=== PATIENT | female | born 1955 | race Caucasian/White ===

== ENCOUNTER 2018-03-31 00:40 | Outpatient (CLI) | payer BC, SELFPAY ==
--- NOTE | 2018-03-31 09:47 | DI.RAD_ITS ---
SYMPTOMS/DIAGNOSIS: PAIN MALVIN SHOULDERS, M19.012, PRIMARY OSTEOARTHRITIS RIGHT SHOULDER INJECTION: Fluoroscopy Time: 3 sec Fluoroscopy was utilized by Dr. Alvarado during the performance of a right shoulder injection. Please refer to the procedure report for complete details. LEFT SHOULDER INJECTION: Fluoroscopy Time: 3 sec Fluoroscopy was utilized by Dr. Alvarado during the performance of a left shoulder injection. Please refer to the procedure report for complete details.
[2018-03-31] MEDS: Omnipaque 300 MG/ML 10 ML BTL IJ (10:45)
[2018-03-31] MEDS: Bupivacaine 0.5% Pres-Free 10 ML VIAL 5 ML IJ ×2 (10:45→10:47)
[2018-03-31] MEDS: methylPREDNISolone ACETATE 80 MG/ML VIAL IM ×2 (10:46→10:48)
--- NOTE | 2018-03-31 12:13 | W.PROCNOTE ---
Date of service: 03/31/18 Time of Service: 12:13 Procedure Note Date of procedure: 03/31/18 Procedure: Bilateral shoulder Injection Surgeon/Proceduralist/Physician: Salo Alvarado Procedure Diagnosis: Bilateral glenohumeral arthritis Procedure Indications: Tania has had persistent pain of both shoulders. Noninvasive measures have been tried. She has known arthritis. She has had previous injection with excellent relief for about 6-8 months. I had discussed the risks of the procedure and the patient elected to proceed. Procedure Description: Tania was greeted in the flouroscopy room. The correct side was identified and the consent was reviewed with the patient and signed. The patient was then placed in the supine position on the fluoroscopy table. The LEFT shoulder was then prepped with Chloraprep. The anterior injection starting point was identiifed by bony landmarks and fluoroscopy. The skin and soft tissue in the tract of the injection was anesthetized with 1% Lidocaine. A spinal needle was then inserted deep into the shoulder joint at the level of the recess between the glenoid and superior humeral head. A small amount of Omnipaque solution was injected to confirm intraarticular placement. Once confirmed, the shoulder was injected with 4cc of 0.5% Bupivicaine and 80mg of Depo-Medrol. A bandaid was placed on the injection site. Back there was kept sterile and the patient was repositioned. The right side was identified as the correct side. The right shoulder was then prepped with ChloraPrep. The anterior injection starting point was identiifed by bony landmarks and fluoroscopy. The skin and soft tissue in the tract of the injection was anesthetized with 1% Lidocaine. A spinal needle was then inserted deep into the shoulder joint at the level of the recess between the glenoid and superior humeral head. A small amount of Omnipaque solution was injected to confirm intraarticular placement. Once confirmed, the shoulder was injected with 4cc of 0.5% Bupivicaine and 80mg of Depo-Medrol. A bandaid was placed on the injection site. The patient tolerated the procedure well and noted improvement in pre-injection pain.
== END 2018-03-31 01:00 ==
PROVIDERS: Visit Provider Student in an Organized Health Care Education/Training Program
DX: M25.511 Pain in right shoulder (principal); M25.512 Pain in left shoulder; M19.011 Primary osteoarthritis, right shoulder; M19.012 Primary osteoarthritis, left shoulder
CPT/HCPCS: 20610; 77002; J1040

== ENCOUNTER 2019-05-03 01:46 | Outpatient (CLI) | payer MEDICARE, BC, SELFPAY ==
--- NOTE | 2019-05-03 09:51 | DI.RAD_ITS ---
EXAM: XR CHEST 2V PA LATERAL INDICATION: cough R05, DYSPNEA NR06.00, R07.89 CHEST PAIN. COMPARISON: CHEST 2 VIEWS PA,LAT from 12/31/2011 RIGHT SHOULDER COMPLETE from 02/26/2016 LEFT SHOULDER COMPLETE from 02/26/2016 TECHNIQUE: 2D digital imaging was performed. FINDINGS: The heart size is normal. There are old left rib fractures. The lungs are mildly hyperinflated but appear clear. No infiltrate or effusion is seen. A left shoulder prosthesis is noted. There are n o thoracic compression fractures. IMPRESSION: No acute abnormality.
== END 2019-05-03 02:06 ==
DX: R05 Cough (principal); R06.09 Other forms of dyspnea; R07.89 Other chest pain; R00.0 Tachycardia, unspecified; I10 Essential (primary) hypertension
CPT/HCPCS: 71046

== ENCOUNTER 2019-05-17 08:01 | Outpatient (CLI) | payer MEDICARE, BC, SELFPAY ==
--- NOTE | 2019-05-17 14:40 | DI.RAD_ITS ---
EXAM: XR THORACIC SPINE COMPLETE INDICATION: back pain,M54.9. COMPARISON: XR CERVICAL SPINE COMP 4-5V from 05/17/2019 TECHNIQUE: 2D digital imaging was performed. FINDINGS: There is normal alignment of the thoracic spine. The paraspinal lines appear intact. Mild degenerat syd changes are present throughout the thoracic spine. No acute fractures or subluxations are presen t. IMPRESSION: Mild degenerative changes of the thoracic spine.
--- NOTE | 2019-05-17 14:50 | DI.RAD_ITS ---
EXAM: XR CERVICAL SPINE COMP 4-5V INDICATION: neck/thoracic pain,M54.2. COMPARISON: No exams were available for comparison TECHNIQUE: 2D digital imaging was performed. FINDINGS: The odontoid is intact. The lateral masses are well aligned. There is straightening of the normal c ervical lordosis. There is 2 mm anterolisthesis of C2 on C3. There is also 2 mm anterolisthesis of C3 on C4. There is disc space narrowing at the C4-C5 through C6-C7 disc levels. Osteophytes are see n at the C3-4 through C6-C7 disc levels. There is mild neural foraminal narrowing on the left at C3- C4 and on the right at C3-4, C4-5 and C6-C7. No acute fracture or subluxation is present. Vascular calcifications are seen in the soft tissues. IMPRESSION: Moderately severe degenerative changes in the cervical spine.
== END 2019-05-17 08:21 ==
DX: M54.2 Cervicalgia (principal); M54.6 Pain in thoracic spine; M50.321 Other cervical disc degeneration at C4-C5 level; M50.323 Other cervical disc degeneration at C6-C7 level; M47.814 Spondylosis without myelopathy or radiculopathy, thoracic region
CPT/HCPCS: 72050; 72072

== ENCOUNTER 2019-05-23 01:27 | Outpatient (CLI) | payer MEDICARE, BC, SELFPAY ==
--- NOTE | 2019-05-23 07:08 | DI.US_ITS ---
APPROVED REPORT EXAM: Comprehensive 2D, Doppler, and color-flow Echocardiogram Patient Location: Out-Patient [employer] Tender Helper: Aziza Anthony [facility] ([facility]) Rhythm: Tachycardia Indications: chest pain pressure, tachycardia, dyspnea. cough. r06.00, r07.89, r05, r00.0 Conclusion Left Ventricle : The left ventricle is normal size. Left ventricular systolic function is hyperdynam ic. There is normal LV segmental wall motion. The left ventricular diastolic function is normal. LVEF is 60-65%. Right Ventricle : The right ventricle is normal size. The right ventricular systolic function is norm al. Atria : The left atrium size is normal. The right atrium size is normal. Aortic Valve : The aortic valve appears normal in structure. There is no aortic valvular stenosis. N o aortic regurgitation is present. Mitral Valve : Mitral valve leaflets are mildly thickened. Mild mitral regurgitation. No evidence of mitral valve stenosis. Tricuspid Valve : Tricuspid valve leaflets are thickened but open well. Trace tricuspid regurgitation . Trace to mild tricuspid regurgitation. Pulmonic Valve : Pulmonic valve is not well visualized. Great Vessels : IVC is normal in size and collapses >50% with inspiration. RVSP is estimated to be b etween 28-32 mmHg. There is no prior echocardiogram available for comparison. Wall motion Left Ventricle The left ventricle is normal size. Left ventricular systolic function is hyperdynamic. The posterior wall thickness is normal. The septum is normal. There is normal LV segmental wall motion. The left ve ntricular diastolic function is normal. LVEF is 60-65%. Right Ventricle The right ventricle is normal size. The right ventricular systolic function is normal. Atria The left atrium size is normal. The right atrium size is normal. Aortic Valve The aortic valve appears normal in structure. There is no aortic valvular stenosis. No aortic regurgi tation is present. Mitral Valve Mitral valve leaflets are mildly thickened. No evidence of mitral valve stenosis. Mild mitral regurgi tation. Tricuspid Valve Tricuspid valve leaflets are thickened but open well. Trace tricuspid regurgitation. Trace to mild tr icuspid regurgitation. Pulmonic Valve Pulmonic valve is not well visualized. Great Vessels The aortic root is normal in size. IVC is normal in size and collapses >50% with inspiration. RVSP is estimated to be between 28-32 mmHg. Pericardium Trivial pericardial effusion anterior. 2D Dimensions IVSd 0.66 cm F: 0.6-1.0 LV EDV A2C 44.50 mL PWd 0.62 cm F: 0.6 - 1.0 LV EDV A4C 37.90 mL LVDd 3.90 cm F: 3.9 - 5.3 LA Volume Index A2C 17.43 mL/m2 LVDs 2.05 cm F: 2.2 - 3.5 LA Volume Index A4C 18.91 mL/m2 RA Area A4C 8.18 cm2 LA Volume Index Biplane 19.99 mL/m2 LVOT 1.79 cm (M/F) 1.5-2.5 LA Area A4C 11.54 cm2 LVEF (Teich) 79.46 % LA Area A2C 12.20 cm2 LVEF (Ace's) 66.38 % F: 54 - 74 EF AP4 68.87 % LV Volume 36.41 mL F: 46 - 106 EF AP2 63.60 % LV Volume Index 24.60 mL/m2 F: 29 - 61 EF BP 66.38 % FS 47.45 % LV Diastology E Decel Time 157.00 (160-240 msec) E/A Ratio 0.70 MED E' 0.08 (>0.07 m/s) LV E/e MED 8.13 (<14) LAT E' 0.11 (>0.1 m/s) LV E/e LAT 5.55 (<14) Aortic Valve LVOT Area 2.51 cm2 LVOT Peak Oumar. 0.99 m/s LVOT Mean Oumar. 0.70 m/s LVOT Peak Gr. 3.92 mmHg GRACIELA Vmax Index 1.17 cm2/m2 LVOT Mean Gr. 2.30 mmHg LVOT VTI 0.17 m GRACIELA Mean Oumar. Index 1.13 cm2/m2 AoV Peak Oumar. 1.44 (0.5-1.3 m/s) AoV Mean Oumar. 1.05 m/s AO Peak GR. 8.29 mmHg AO Mean GR. 4.83 (<5 mmHg) AO VTI 0.26 (0.18-0.25 m) GRACIELA (VTI) 1.62 (2.5-4.5 cm2) GRACIELA (VTI) Index 1.09 cm/m2 Mitral Valve MV E Max Oumar. 0.64 (0.4-1.3 m/s) MV A Velocity 0.93 (0.4-1.3 m/s) E/A Ratio 0.68 MV Decel. Time 157.28 (160-240 msec) MV PHT 45.61 msec MVA PHT 4.82 cm2 Tricuspid Valve TR P. Velocity 2.64 m/s TV Regurg Vmax 2.64 m/s RVSP 27.88 mmHg TR P. Gradient 27.88 mmHg
== END 2019-05-23 01:47 ==
DX: R07.89 Other chest pain (principal); R00.0 Tachycardia, unspecified; R06.00 Dyspnea, unspecified; R05 Cough
CPT/HCPCS: 93306

== ENCOUNTER 2019-06-23 08:37 | Outpatient (CLI) | payer MEDICARE, BC, SELFPAY | END 2019-06-23 08:57 | PROVIDERS: Visit Provider Internal Medicine Cardiovascular Disease | DX: M54.9 Dorsalgia, unspecified (principal); I10 Essential (primary) hypertension; E78.5 Hyperlipidemia, unspecified; F17.210 Nicotine dependence, cigarettes, uncomplicated | CPT/HCPCS: 99204; 99215; 93005; 93010 ==

== ENCOUNTER 2020-11-14 09:55 | Emergency (ER) | payer MEDICARE, BC, SELFPAY ==
[2020-11-14 10:02] VITALS: BP 160/93; PULSE 79; RESP 15; TEMP 36.8; O2SAT 99
--- NOTE | 2020-11-14 10:09 | ED.GENADUL_ITS ---
Discharge Plan Disposition Patient Disposition: HOME Condition: Stable Discharge Details Clinical Impression: Diplopia, Headache Primary Care Provider: Mishel Desai ED Provider: Dali Caldwell Home Meds and New Rx's Prescriptions: No Action multivitamin 1 EACH tablet 1 ea PO DAILY RF: 0 ibuprofen 200 MG tablet 400 - 600 mg PO PRN RF: 0 epinephrine [EpiPen 2-Jese] 0.3 MG/0.3 ML auto-injector 0.3 mg IM ONCE Qty: 1 RF: 1 Discharge Instructions Instructions: Diplopia (ED), General Headache (ED) Additional Instructions: Follow-up with your analytics architect or [facility] in 3 to 5 days. This may be an eye problem or an atypical migraine type headache. If this continues or recurs he may also follow-up with neurology Dr. Rodarte Follow up with primary care provider in 3-5 days. Return to ED sooner if any worsening headache, worsening visual disturbances, fever, vomiting, worsening neck pain, or concerns. Increase oral fluids. You may take Tylenol or ibuprofen every 4-6 hours as needed for pain. Referrals: Mishel Desai NP [Primary Care Provider] - Irasema Rodarte MD [ [facility] STAFF PHYSICIAN] - Medical Decision Making CBC, CMP, PT CT head without and with ordered. Labs are largely unremarkable, glucose 107, platelet count 443 Differential diagnosis includes but not limited to CVA, atypical migraine,tumor, giant cell arteritis CT head without and with: FINDINGS: There are no skull fractures nor fluid in the visualized paranasal sinuses. However, there is a post inflammatory retention cyst measuring 10 x 10 millimeters in the anterior floor of the right maxillary sinus, not associated with a fluid level. There is also unilateral periosteal thickening of the lateral wall of the left maxillary sinus without significant mucosal thickening. The sphenoid and frontal sinuses are clear as are the model air cells. Mastoid air cells are clear. There is no evidence of intracranial hemorrhage, mass effect, or shift of midline structures. There are no extra-axial fluid collections. The ventricles are not enlarged or shifted and there is no blood within the ventricular system nor within the basal cisterns. There are no ring enhancing lesions in the brain and there is no abnormal meningeal enhancement, focal or diffuse. No obvious aneurysms. IMPRESSION: No significant intracranial findings. No significant enhancing intracranial findings.. No aneurysms Incidentally noted is periosteal thickening of the lateral wall of the left maxillary sinus and a small retention cyst in the floor of the opposite-right maxillary sinus. 1104: Patient reevaluation, blood pressure has improved somewhat, patient states that her headache has slowly been decreasing and is now stating 4 out of 10. Offered nausea and pain medications with patient declined at this time. Will consult with neurology for further recommendations. 1113: Spoke with Irasema Scanlon regarding patient, confirmed with patient that she does still have Diplopia present when closing either eye. Due to continued diplopia with closing eyes, Dr. Scanlon does not have any further reccommendations for further imaging at this time. This could be more of a migraine or eye problem. Offered patient nausea medication and pain medications which she declined at this time. She states that her headache is now gone. Discussed home care with patient and strict return instructions, verbalized understanding. This text was generated using [employer] dictation system, please disregard any oddities of phrase or misspellings. Patient remained hemodynamically stable alert and oriented x4 throughout stay. She reports that her completely gone prior to discharge. HPI General Mode of arrival: ambulatory . Date/Time Provider Initiated Documentation: 11/14/20 10:05 . Limitations to Documentation: no limitations . Information obtained by: patient . HPI Narrative: 65-year-old female presents to the ER chief complaint of posterior headache and double vision which she noticed began at 430 this morning. She states that she was working on her sewing machine and noticed what she describes as horizontal diplopia she reports possibly worse in the right eye. She also noted that she woke up with some possibly posterior neck pain which then gradually turned into some posterior headache which she describes as pressure 6 out of 10. She also reports being somewhat off balance she describes it as being wonky. She denies any weakness, numbness tingling to her extremities no chest pain no shortness of breath. She does state that yesterday morning she had an episode of diarrhea and nausea vomiting which she attributed to suspenders that she had eaten previously. 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 She does state that when she looks with both eyes she does see horizontal diplopia. She did take some Tylenol prior to arrival. She has a past medical history of hypertension, hyperlipidemia, shoulder replacement, ovarian cancer, surgical history includes appendectomy, oophorectomy colonoscopy shoulder replacement and laparoscopic hysterectomy. She is a daily smoker. Related Data Home Medications Medication Instructions Recorded Confirmed ibuprofen 400 - 600 mg PO PRN 09/15/13 11/14/20 multivitamin 1 ea PO DAILY 09/15/13 11/14/20 epinephrine [Epipen 2-Jese] 0.3 mg IM ONCE #1 pen 09/01/17 11/14/20 Previous Rx's Medication Instructions Recorded epinephrine [Epipen 2-Jese] 0.3 mg IM ONCE #1 pen 09/01/17 Allergies Allergy/AdvReac Type Severity Reaction Status Date / Time escitalopram Allergy Mild Verified 11/14/20 10:05 bee pollen Allergy Unknown Verified 11/14/20 10:05 General Stated Complaint: Headache VALERY: 3 Review of Systems Narrative: Constitutional: Negative for weight loss, alert and oriented, well groomed, normal body habitus, appears comfortable. HEENT: Denies trauma, nasal discharge, sore throat, trouble swallowing. Reports posterior headache and double vision which began this morning. She also reports intermittent floaters. Does endorse bilateral tinnitus which she reports she has chronically Chest: Denies chest pain, palpitations, irregular rhythm, hypertension. Respiratory: Denies Shortness of breath, cough, hemoptysis. GI: Denies abdominal pain, constipation. Positive nausea vomiting diarrhea yesterday none today. : Denies dysuria, hematuria, flank pain, rectal bleeding. Neuro: Denies weakness, syncope, or facial numbness. Does report a posterior headache, double vision, feeling off balance. Hematologic: Denies easy bruising, intolerance to heat or cold, hair loss. [facility] Medical History (Updated 11/14/20 @ 11:38 by Dali Caldwell) Constipation Essential hypertension Hyperlipidemia Polyp of colon Surgical History Appendectomy Bilateral salpingectomy with oophorectomy Colonoscopy - [facility] (05/21/10) [facility] Hx of shoulder replacement Keon castillo - Dr. Carlin 07/28/09 Hysterectomy, Laproscopic Family History Mother Stroke Father Heart disease Sister No problems noted. Sister No problems noted. Sister No problems noted. Social History Smoking risk assessment performed?: No Alcohol Intake: current Alcohol Intake frequency: a few times a week Alcohol type: wine and hard liquor Drug use: Never Substance use type: does not use Do you feel safe at home: Yes Exam Narrative Exam Narrative: Constitutional: Alert and oriented x3. Appears stated age. Normal body habitus. Head: Normocephalic, no trauma. Eyes: Pupils approximately 4 mm on the left reactive to light and accommodation, 3 mm on the right reactive to light and accommodation, Red reflex noted bilaterally, EOM's intact, no nystagmus. Eyelids symmetrical without lesions, discharge, or swelling. ENT: Bilateral TM's WNL, External ear normal to inspection, no mastoid TTP, swelling, or erythema, Nasal turbinates WNL, no nasal discharge. Normal dentition, Posterior pharynx WNL, no exudate. Chest: RRR, Normal S1, S2, distal pulses intact. Resp: Lungs clear to auscultation bilaterally, no wheezes, rales, or rhonchi. Abdomen: Soft, nondistended nontender to palpation all 4 quadrants Musculoskeletal: Normal gait, 5/5 strength to all four extremities. Skin: No suspicious rashes or lesions. Capillary refill less than 2 sec. Neurologic: Cranial nerves II-XII intact. Alert and oriented x 3. Intact [id number], structural steel erection supervisor 5+ bilaterally, intact bilateral [id number], no arm drift or leg drift bilaterally. Hematologic/Lymphatic: No ecchymosis, no lymphadenopathy. Course Vital Signs Vital signs: Vital Signs Temperature 36.8 C 11/14/20 10:02 Pulse 79 11/14/20 10:02 Respiratory Rate 15 11/14/20 10:02 Blood Pressure 160/93 H 11/14/20 10:02 Pulse Oximetry 99 11/14/20 10:02 Temperature 36.8 C 11/14/20 10:02 Temperature Source Temporal Artery Scan 11/14/20 10:02 Pulse 79 11/14/20 10:02 Respiratory Rate 15 11/14/20 10:02 Respiratory Effort 11/14/20 10:06 Blood Pressure 160/93 H 11/14/20 10:02 Blood Pressure Position Supine 11/14/20 10:02 Pulse Oximetry 99 11/14/20 10:02 Oxygen Delivery Method Room Air 11/14/20 10:02 Oxygen Flow Rate 0 11/14/20 10:02 Pain Level 6 11/14/20 10:02
[2020-11-14 10:31] LABS: Abs Immature Grans 0.01 10^3/uL (0.0-0.06); Absolute Basophil Count 0.04 10^3/uL (0.0-0.2); Absolute Eosinophil Count 0.27 10^3/uL (0.0-0.7); Absolute Lymphocyte Count 2.19 10^3/uL (1.2-3.4); Absolute Monocyte Count 0.68 10^3/uL (0.1-0.8); Absolute Neutrophil Count 3.68 10^3/uL (1.2-6.7); Basophils % 0.6; Eosinophils % 3.9; HCT 46.1 % (36.0-46.0); HGB 15.7 g/dL (11.2-15.7); Immature Grans % 0.1; Lymphocytes % 31.9; MCH 32.1 pg (27.0-33.0); MCHC 34.1 % (32.0-36.0); MCV 94.3 fL (80-95); MPV 8.2 fL (8.0-11.0); Monocytes % 9.9; Neutrophils % 53.6; Nucleated RBC 0 %; Platelet Count 443 10^3/uL (130-400); RBC 4.89 10^6/uL (3.93-5.22); RDW 13.2 % (11.7-14.6); RDW-SD 45.8 fL; WBC 6.87 10^3/uL (4.4-10.8)
[2020-11-14 10:42] LABS: ALT 29 U/L (14-59); AST 18 U/L (15-37); Albumin 3.8 g/dL (3.4-5.0); Alkaline Phosphatase 85 U/L (46-116); BUN 7 mg/dL (7-18); Bilirubin, Total 0.4 mg/dL (0.2-1.0); CREATININE 0.9 mg/dL (0.55-1.02); Chloride 101 mmol/L (98-107); Glucose 107 mg/dL (74-106); Potassium 3.7 mmol/L (3.5-5.1); Prothrombin Time 9.7 sec (9.3-11.0); Sodium 139 mmol/L (136-145); Total Protein 7.6 g/dL (6.4-8.2)
[2020-11-14] MEDS: Omnipaque 350 MG/ML 100 ML BTL IJ (10:45)
[2020-11-14] MEDS: Normal Saline - Diluent 50 ML VIAL IV (10:45)
[2020-11-14] MEDS: Normal Saline Flush 10 ML SYR IVP (10:46)
--- NOTE | 2020-11-14 10:46 | DI.CT_ITS ---
Exam(s) CT HEAD WO/W EXAM: CT HEAD WO/W CLINICAL HISTORY: Headache Double vision. TECHNIQUE: Imaging Protocol: Both noninfused and contrast infused CT scans of the brain were perform ed. IV Contrast Dose =100 cc Axial computed tomography images with coronal and sagittal reformatted images were created and review ed COMPARISON: No exams were available for comparison FINDINGS: There are no skull fractures nor fluid in the visualized paranasal sinuses. However, there is a pos t inflammatory retention cyst measuring 10 x 10 millimeters in the anterior floor of the right maxill sol sinus, not associated with a fluid level. There is also unilateral periosteal thickening of the lateral wall of the left maxillary sinus without significant mucosal thickening. The sphenoid and fr ontal sinuses are clear as are the model air cells. Mastoid air cells are clear. There is no evidence of intracranial hemorrhage, mass effect, or shift of midline structures. There are no extra-axial fluid collections. The ventricles are not enlarged or shifted and there is no blo od within the ventricular system nor within the basal cisterns. There are no ring enhancing lesions in the brain and there is no abnormal meningeal enhancement, foca l or diffuse. No obvious aneurysms. IMPRESSION: No significant intracranial findings. No significant enhancing intracranial findings.. No aneurysms Incidentally noted is periosteal thickening of the lateral wall of the left maxillary sinus and a sma ll retention cyst in the floor of the opposite-right maxillary sinus. RADIATION DOSE DELIVERED: 1,306.04mGy.cm Total DLP DATA REPOSITORY: All CT scans at this facility are submitted to the National Radiology Data Registry (NRDR) Dose Index Registry (DIR) with the [employer] (ACR). RADIATION OPTIMIZATION: All CT scans at this facility use at least one of these dose optimization te chniques: automated exposure control; mA and/or kV adjustment per patient size (includes targeted exa ms where dose is matched to clinical indication); or iterative reconstruction.
[2020-11-14 10:47] VITALS: BP 148/76; PULSE 81; O2SAT 98
[2020-11-14 10:55] VITALS: PULSE 74; RESP 22; O2SAT 97
[2020-11-14 11:00] VITALS: PULSE 71; RESP 21; O2SAT 96
[2020-11-14 11:30] VITALS: PULSE 66; RESP 21; O2SAT 94
== END 2020-11-14 11:54 | disposition home or self-care (01) ==
PROVIDERS: Emergency Provider Registered Nurse Emergency
DX: H53.2 Diplopia (principal); R51.9 Headache, unspecified
CPT/HCPCS: 80053; 99285; 70470; 85025; 85610; 99283; J3490

== ENCOUNTER 2021-04-09 00:21 | Outpatient (CLI) | payer MEDICARE, BC, SELFPAY ==
[2021-04-10 10:14] LABS: CA 125 <3 U/mL (<30)
== END 2021-04-09 00:22 | disposition home or self-care (01) ==
DX: C56.9 Malignant neoplasm of unspecified ovary (principal)
CPT/HCPCS: 36415; 86304

== ENCOUNTER 2021-05-23 02:49 | Outpatient (CLI) | payer MEDICARE, BC, SELFPAY ==
--- NOTE | 2021-05-23 08:00 | DI.MAMMO_ITS ---
Exam(s) MAMMO SCREENING EXAM: MAMMO SCREENING CLINICAL HISTORY: screening,Z12.39 TECHNIQUE: Mammograms were interpreted according to the usual protocol including computer analysis w [employer] CAD system, tomosynthesis and C-view imaging. COMPARISON: 2011 through 2017 FINDINGS: The breasts are composed of heterogeneously dense fibroglandular densities, Breast Density category C . No suspicious masses or suspicious microcalcifications are seen. No skin thickening or abnormal axillary lymph nodes are seen. There has been no significant change from prior exams. IMPRESSION: BI-RADS Category 1, Negative mammogram. Yearly screening mammography is recommended. Breast Density Category C, heterogeneously Dense. The mammogram demonstrates the patient's breast tissue is dense. Dense breast tissue is very common a nd is not abnormal but dense breast tissue can make it harder to find cancer on a mammogram. Also, de nse breast tissue may increase breast cancer risk. This information about the result of the mammogram report was provided to the patient to raise their awareness. Use this report when you speak with the patient about their risks for breast cancer, which includes their family history. At that time, you may recommend additional screening tests (Ultrasound or MRI) as they might be useful based on their r isk. A negative radiographic report should not delay biopsy if a dominant or clinically suspicious mass is present. Up to ten percent of cancers are not identified on mammography. A negative report may reinforce clinical impression. Adenosis and dense breasts may obscure an underlying neoplasm. False positive reports average 6 to 10%.
== END 2021-05-23 03:09 ==
DX: Z12.31 Encounter for screening mammogram for malignant neoplasm of breast (principal); R92.8 Other abnormal and inconclusive findings on diagnostic imaging of breast
CPT/HCPCS: 77063; 77067

== ENCOUNTER 2021-10-10 03:33 | Outpatient (CLI) | payer MEDICARE, BC, SELFPAY ==
[2021-10-10 11:13] LABS: Abs Immature Grans 0.03 10^3/uL (0.0-0.06); Absolute Basophil Count 0.06 10^3/uL (0.0-0.2); Absolute Eosinophil Count 0.23 10^3/uL (0.0-0.7); Absolute Lymphocyte Count 2.32 10^3/uL (1.2-3.4); Absolute Monocyte Count 0.78 10^3/uL (0.1-0.8); Absolute Neutrophil Count 5.21 10^3/uL (1.2-6.7); Basophils % 0.7; Eosinophils % 2.7; HCT 46.7 % (36.0-46.0); HGB 15.5 g/dL (11.2-15.7); Immature Grans % 0.3; Lymphocytes % 26.9; MCH 31.7 pg (27.0-33.0); MCHC 33.2 % (32.0-36.0); MCV 95.5 fL (80-95); MPV 8.3 fL (8.0-11.0); Neutrophils % 60.4; Nucleated RBC 0 %; Platelet Count 464 10^3/uL (130-400); RBC 4.89 10^6/uL (3.93-5.22); RDW 13.5 % (11.7-14.6); RDW-SD 48.2 fL; WBC 8.63 10^3/uL (4.4-10.8)
[2021-10-10 11:37] LABS: ALT 25 U/L (14-59); AST 16 U/L (15-37); Albumin 3.9 g/dL (3.4-5.0); Alkaline Phosphatase 66 U/L (46-116); Anion Gap 8.8 mmol/L (3-11); BUN 8 mg/dL (7-18); Bilirubin, Total 0.3 mg/dL (0.2-1.0); CO2 27.2 mmol/L (21.0-32.0); CREATININE 0.7 mg/dL (0.55-1.02); Calcium 9.1 mg/dL (8.5-10.1); Chloride 103 mmol/L (98-107); Glucose 135 mg/dL (74-106); Potassium 3.7 mmol/L (3.5-5.1); Sodium 139 mmol/L (136-145); Total Protein 7.3 g/dL (6.4-8.2)
[2021-10-11 11:15] LABS: Campylobacter PCR Negative (Negative); Salmonella PCR Negative (Negative); Shiga Toxin PCR Negative (Negative); Shigella/Enteroinvasive Ecoli Negative (Negative)
== END 2021-10-10 03:34 | disposition home or self-care (01) ==
LOC: LBO 03:33
PROVIDERS: Visit Provider Nurse Practitioner Family
DX: G89.29 Other chronic pain (principal); R10.84 Generalized abdominal pain; M54.9 Dorsalgia, unspecified; Z86.19 Personal history of other infectious and parasitic diseases
CPT/HCPCS: 36415; 80053; 87505; 85025; 87177

== ENCOUNTER 2021-10-14 01:56 | Outpatient (CLI) | payer MEDICARE, BC, SELFPAY ==
--- NOTE | 2021-10-14 07:33 | DI.CT_ITS ---
Exam(s) CT ABDOMEN PELVIS W EXAM: CT ABDOMEN PELVIS W CLINICAL HISTORY: Abdominal pain x 1yr, fam hx pancreatic cancer, chronic abd pain, R10.84, TECHNIQUE: Imaging Protocol: Axial computed tomography images with coronal and sagittal reformatted images were created and reviewed CONTRAST MATERIAL: Intravenous: Omnipaque 350 Contrast volume:100 mL Oral: Yes COMPARISON: CT CHEST ABD PELVIS WITH CONTRAST from 12/14/2008 FINDINGS: ABDOMEN: Lung Bases: Normal where visualized. Liver: Normal density. No measurable mass. Portal, Superior Mesenteric, and Splenic Veins: Unremarkable. Gallbladder and Biliary Tract: No radiodense calculus or dilation. Pancreas: Normal density, no abnormal calcifications or inflammatory process. Spleen: Normal. Adrenals: No masses seen. Kidneys: Normal size, contour and axis. No radiodense stones or obstructive uropathy. There is again seen a 3.4 x 3.2 cm simple cyst in the left kidney. No follow-up is recommended. Abdominal Aorta: Abdominal portion non-dilated. Atherosclerosis. Bowel: No evidence of bowel obstruction. There is thickening of the wall of the distal stomach. Thi s may be due to underdistention but and an infectious/inflammatory process or mass cannot be excluded . No evidence of appendicitis. Diverticulosis is seen in the sigmoid colon, but no evidence of acut e diverticulitis. Peritoneal Cavity: No ascites, collection or mesenteric inflammatory response. No free air. Lymph Nodes: Within normal limits. Bones: Within normal limits for the patient's age. Grade 1 pseudo spondylolisthesis of L4 on L5 is n oted. Soft Tissues: Unremarkable. PELVIS: Bladder: There is diffuse thickening of the wall of the urinary bladder. While this may be due to un derdistention, cystitis cannot be excluded. Reproductive Organs: Status post hysterectomy. Lymph Nodes: Within normal limits. Bones: Within normal limits for the patient's age. IMPRESSION: 1. No CT evidence of a pancreatic mass. 2. Thickening of the wall of the distal stomach. This may be due to underdistention however gastriti s or mass cannot be excluded. Further evaluation is recommended. This may include a upper GI barium examination or upper endoscopy. 3. Diffuse thickening of the wall of the urinary bladder. While this may be due to underdistention, cystitis cannot be excluded. RADIATION DOSE DELIVERED: 541.47mGy.cm Total DLP DATA REPOSITORY: All CT scans at this facility are submitted to the National Radiology Data Registry (NRDR) Dose Index Registry (DIR) with the [employer] (ACR). RADIATION OPTIMIZATION: All CT scans at this facility use at least one of these dose optimization te chniques: automated exposure control; mA and/or kV adjustment per patient size (includes targeted exa ms where dose is matched to clinical indication); or iterative reconstruction.
[2021-10-14] MEDS: Omnipaque 350 MG/ML 50 ML BTL IJ (09:42)
[2021-10-14] MEDS: Breeza Beverage 473 ML BTL PO (09:43)
[2021-10-14] MEDS: Omnipaque 350 MG/ML 100 ML BTL IJ (11:16)
== END 2021-10-14 02:16 ==
PROVIDERS: Visit Provider Nurse Practitioner Family
DX: R10.84 Generalized abdominal pain (principal); G89.29 Other chronic pain; Z80.0 Family history of malignant neoplasm of digestive organs; N28.1 Cyst of kidney, acquired; N32.89 Other specified disorders of bladder; K31.89 Other diseases of stomach and duodenum
CPT/HCPCS: 74177; J3490; Q9967

== ENCOUNTER 2022-04-17 01:21 | Outpatient (CLI) | payer MEDICARE, BC, SELFPAY ==
[2022-04-17 13:37] LABS: ALT 29 U/L (14-59); AST 17 U/L (15-37); Alkaline Phosphatase 66 U/L (46-116); Anion Gap 7.1 mmol/L (3-11); BUN 10 mg/dL (7-18); Bilirubin, Total 0.5 mg/dL (0.2-1.0); CO2 30.9 mmol/L (21.0-32.0); CREATININE 0.8 mg/dL (0.55-1.02); Calcium 9.4 mg/dL (8.5-10.1); Calculated LDL 140 mg/dL (<100); Chloride 103 mmol/L (98-107); Cholesterol 244 mg/dL (<200); Estimated GFR 79.71 (mL/min/1.73m2); Glucose 104 mg/dL (74-106); HDL Cholesterol 93 mg/dL (40-60); Potassium 3.9 mmol/L (3.5-5.1); Sodium 141 mmol/L (136-145); Total Protein 7.6 g/dL (6.4-8.2); Triglyceride 58 mg/dL (<150)
== END 2022-04-17 01:22 | disposition home or self-care (01) ==
LOC: LOS 01:21
DX: E78.5 Hyperlipidemia, unspecified (principal)
CPT/HCPCS: 36415; 80053; 80061

== ENCOUNTER 2022-05-08 02:11 | Outpatient (CLI) | payer MEDICARE, BC, SELFPAY ==
--- NOTE | 2022-05-08 15:00 | RT.PFT_ITS ---
The report has been sent as a scanned image. This report serves to complete the order.
[2022-05-08] MEDS: Albuterol HFA 18 GM 200 PUFF INH IH (16:03)
[2022-05-08] MEDS: Inhaler, Assist Device 1 EACH MC (16:03)
--- NOTE | 2022-05-12 09:13 | W.PFT ---
Date of service: 05/08/22 Time of Service: 14:50 Pulmonary Function Test Result Requesting Provider Laisha Diaz Indications: TRAVIS Interpretation Spirometry: There is moderate airflow limitation. There is technically no bronchodilator response. Lung Volumes: There is hyperinflation and air trapping. Diffusion Capacity: There is a reduced diffusion. Airway Pressure: There is increased airways resistance. Impression Moderate airflow obstruction with a decreased diffusion and air trapping. This is consistent with COPD with emphysema. Clinical Correlation therefore is recommended.
== END 2022-05-08 02:12 | disposition home or self-care (01) ==
LOC: RT 02:11
PROVIDERS: Visit Provider Nurse Practitioner Family
DX: F17.210 Nicotine dependence, cigarettes, uncomplicated (principal); R06.09 Other forms of dyspnea; J44.9 Chronic obstructive pulmonary disease, unspecified
CPT/HCPCS: 94060; 94726; 94729

== ENCOUNTER → 2022-05-27 02:28 | Outpatient (CLI) | payer MEDICARE, BC, SELFPAY ==
--- NOTE | 2022-05-27 07:15 | DI.CTLCSR_ITS ---
Exam(s) CT CHEST LUNG CANCER SCREEN EXAM: CT CHEST LUNG CANCER SCREEN CLINICAL HISTORY: Screening for lung cancer,CURRENT SMOKER, F17.210 TECHNIQUE: Imaging Protocol: Axial computed tomography images with coronal and sagittal reformatted images were created and reviewed COMPARISON: CT CHEST ABD PELVIS WITH CONTRAST from 12/14/[address] ABDOMEN PELVIS W from 10/14/2021 FINDINGS: Tracheobronchial tree: Patent where visualized. Pulmonary parenchyma: No consolidation or dominant measurable mass. Moderate emphysematous changes ar e present. Lung Nodules: None. Mediastinum and Wendi: No dominant adenopathy or fluid collection. The esophagus is unremarkable. Thyroid gland: Unremarkable. Lymph nodes: Unremarkable. Pleura: No effusion or pneumothorax. Heart: The heart is not dilated. Mild coronary artery calcification is present. No pericardial effus ion. Aorta: Thoracic aorta non-dilated.Atherosclerosis is present. Upper abdomen: There is a stable cyst in the left kidney. Soft Tissues: Unremarkable. Bones: Within normal limits. There is a left shoulder replacement. There are old healed left rib fra ctures. IMPRESSION: No pulmonary nodules. Lung RADS Cat 1 - Negative: No nodules and definitely benign nodules Lung-RADS 1.0 CATEGORIES: Category 0 - Prior chest CT exam(s) being located for comparison. Category 1 - Annual screening in 12 months. No nodules or definitely benign nodules. Category 2 - Annual screening in 12 months. Benign appearance. Nodules with low likelihood of becomin g active cancer. Category 3 - 6-month follow-up. Probably benign. Short-term follow-up suggested. Nodules with low lik elihood of becoming active cancer. Category 4A - 3-month follow-up and CT/PET if >8 mm in size. Suspicious finding. Findings which requi re additional testing. Category 4B - Findings which require additional testing and tissue sampling. Suspicious finding. Category 4X - Category 3 or 4 nodules with additional features or imaging findings that increases the suspicion of malignancy. Modifier S- Potentially clinically significant finding. (Non lung cancer) RADIATION DOSE DELIVERED: 77.22mGy.cm Total DLP 1.84mGy!Error CTDIvol 77.22mGy.cm Total DLP 1.84mGy!Error CTDIvol DATA REPOSITORY: All CT scans at this facility are submitted to the National Radiology Data Registry (NRDR) Dose Index Registry (DIR) with the [employer] (ACR). RADIATION OPTIMIZATION: All CT scans at this facility use at least one of these dose optimization te chniques: automated exposure control; mA and/or kV adjustment per patient size (includes targeted exa ms where dose is matched to clinical indication); or iterative reconstruction.
--- NOTE | 2022-05-27 07:15 | DI.MAMMO_ITS ---
Exam(s) MAMMO SCREENING EXAM: MAMMO SCREENING CLINICAL HISTORY: screening,Z12.39 TECHNIQUE: Bilateral full field digital CC and MLO mammographic images were obtained with 3D tomosyn thesis and utilizing computer aided detection (CAD). COMPARISON: Available for comparison. FINDINGS: Masses/Architectural Distortion: None seen. Microcalcifications: No suspicious pleomorphic-type are seen. Skin Thickening/Nipple Retraction: None. IMPRESSION: 1. No significant interval change with no specific features of malignancy noted. 2. Unless there is more urgent need, screening mammography is recommended, as per [employer] guidelines. BI-RADS Category 1 - Negative Breast Density - Category C - Heterogeneously dense Breast density category C or D implies that the patient has dense breast tissue. Dense breast tissue is very common and is not abnormal but dense breast tissue can make it harder to find cancer on a ma mmogram. Also, dense breast tissue may increase their breast cancer risk. This information about the result of the mammogram report was provided to the patient to raise their awareness. Use this report when you speak with the patient about their risks for breast cancer, which includes their family hist ory. At that time, you may recommend for more screening tests (Ultrasound or MRI) as they might be us eful based on their risk. A negative radiographic report should not delay biopsy if a dominant or clinically suspicious mass is present. Up to ten percent of cancers are not identified on mammography. A negative report may reinforce clinical impression. Adenosis and dense breasts may obscure an underlying neoplasm. False positive reports average 6 to 10%. Patient will receive a letter notifying them of these results.
== END ==
PROVIDERS: PCP Nurse Practitioner Family; Visit Provider Nurse Practitioner Family
DX: Z12.31 Encounter for screening mammogram for malignant neoplasm of breast (principal); Z12.2 Encounter for screening for malignant neoplasm of respiratory organs; F17.210 Nicotine dependence, cigarettes, uncomplicated
CPT/HCPCS: 71271; 77063; 77067

== ENCOUNTER 2022-08-13 01:44 | Outpatient (CLI) | payer MEDICARE, BC, SELFPAY ==
--- NOTE | 2022-08-13 08:00 | DI.DEXA_ITS ---
Exam(s) XR DEXA BONE DENSITY W/WO ROBBIN EXAM: XR DEXA BONE DENSITY W/WO ROBBIN CLINICAL HISTORY: screening for osteoporosis in postmenopausal woman,z78.0 TECHNIQUE: Routine DEXA evaluation of the lumbar spine, hip, or forearm. COMPARISON: No exams were available for comparison FINDINGS: Performed on a Hologic unit. Lateral image: No compression fracture evident. Lumbar Spine total T-score: 0.0 Hip total T-score:-1.5 Independent reading at the level of the femoral neck yields T-score of -2.5 Forearm total T-score: -2.0 IMPRESSION: Bone mineral density measures in the osteopenia-bordering on osteoporosis range. Fracture risk is mod erate-high. Note: Any spine fracture indicates 5x risk for subsequent spine fracture and 2x risk for subsequent h ip fracture. World Health Organization criteria for BMD interpretation classify patients: Normal...... T- Score at or above -1.0 Osteopenic... T- Score between -1.0 and -2.5 Osteoporosis... T-Score at or below -2.5
== END 2022-08-13 02:04 ==
LOC: DI 01:44
PROVIDERS: PCP Nurse Practitioner Family; Visit Provider Nurse Practitioner Family
DX: Z78.0 Asymptomatic menopausal state (principal); Z13.820 Encounter for screening for osteoporosis; M85.89 Other specified disorders of bone density and structure, multiple sites
CPT/HCPCS: 77080

== ENCOUNTER 2022-12-17 13:15 | Outpatient (CLI) | payer MEDICARE, BC, SELFPAY ==
[2022-12-17 14:12] LABS: Abs Immature Grans 0.04 10^3/uL (0.0-0.06); Absolute Basophil Count 0.07 10^3/uL (0.0-0.2); Absolute Eosinophil Count 0.14 10^3/uL (0.0-0.7); Absolute Lymphocyte Count 2.45 10^3/uL (1.2-3.4); Absolute Monocyte Count 0.86 10^3/uL (0.1-0.8); Absolute Neutrophil Count 6.01 10^3/uL (1.2-6.7); Basophils % 0.7; Eosinophils % 1.5; HCT 43.2 % (36.0-46.0); HGB 15.2 g/dL (11.2-15.7); Immature Grans % 0.4; Lymphocytes % 25.6; MCH 32.7 pg (27.0-33.0); MCHC 35.2 % (32.0-36.0); MCV 93 fL (80-95); Neutrophils % 62.8; Platelet Count 434 10^3/uL (130-400); RBC 4.65 10^6/uL (3.93-5.22); RDW 13.6 % (11.7-14.6); RDW-SD 46.5 fL; WBC 9.57 10^3/uL (4.4-10.8)
[2022-12-17 14:27] LABS: ALT 27 U/L (14-59); AST 20 U/L (15-37); Albumin 3.9 g/dL (3.4-5.0); Alkaline Phosphatase 63 U/L (46-116); Anion Gap 6.8 mmol/L (3-11); BUN 11 mg/dL (7-18); Bilirubin, Total 0.5 mg/dL (0.2-1.0); CO2 30.2 mmol/L (21.0-32.0); CREATININE 0.9 mg/dL (0.55-1.02); Chloride 102 mmol/L (98-107); Glucose 117 mg/dL (74-106); Potassium 3.6 mmol/L (3.5-5.1); Sodium 139 mmol/L (136-145); Total Protein 7.2 g/dL (6.4-8.2)
[2022-12-17] MEDS: Normal Saline Flush 10 ML SYR IJ (14:35)
[2022-12-17] MEDS: Normal Saline - Diluent 50 ML VIAL IJ (14:36)
[2022-12-17] MEDS: Omnipaque 350 MG/ML 100 ML BTL 85 ML IJ (14:36)
--- NOTE | 2022-12-17 14:59 | DI.CT_ITS ---
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 TECHNIQUE: Imaging Protocol: Axial CT angiography was performed with multi-slice acquisition and mu lti-planar and/or 3D reconstructions. CONTRAST MATERIAL: Intravenous: Omnipaque 350 Contrast volume:structured data in ml COMPARISON: CT CT ABDOMEN PELVIS W from 10/14/2021 FINDINGS: CTA Neck W: Aortic arch anatomy: The aortic arch anatomy is conventional and there is no significant stenosis at the origin of the great vessels off of the aortic arch. No intimal flap evident. Anterior circulation: Both common carotid arteries ascend with normal luminal diameters. There is significant calcified and noncalcified plaque at the level the carotid bulbs and proximal in ternal carotid arteries bilaterally. The amount of calcification makes stenosis quantification somew hat difficult but suspect critical 90 percent stenosis on the right side and approximately 80 percent stenosis on the left side. Both internal carotid arteries are patent in the upper neck. Posterior circulation: Both vertebral arteries originate in conventional fashion off of the subclavian arteries and there is no obvious stenosis at the origin of the vertebral arteries. Both vertebral arteries exhibit normal luminal diameters within the foramen transversarium. Both vertebral arteries exhibit approximately equal diameters. No evidence of intraluminal thrombus nor dissection. Both vertebral arteries contribute to the formation of the basilar artery at the skull base. CTA Brain W: Anterior circulation: Both internal carotid arteries are patent in the skull base-carotid canals as well as within the cave rnous sinuses. The supraclinoid aspects of the ICAs are patent. Both A1 segments are patent as are the anterior cer ebral arteries and there is no evidence of aneurysm at the level of the anterior communicating artery . Both middle cerebral arteries are patent with no evidence of significant stenosis nor intraluminal th rombus. There also no aneurysms of these vessels. Posterior circulation: The basilar artery ascends in the midline. Distally it gives off patent bilateral superior cerebella r arteries. Above this level the basilar artery terminates as patent bilateral posterior cerebral arteries. There is no evidence of aneurysm at the tip of the basilar artery nor elsewhere in the [id number] is. CT BRAIN: There is no evidence of intracranial hemorrhage, mass effect, or shift of midline structures. There are no extra-axial fluid collections. Ventricles are not enlarged or shifted. There are no ring enh ancing lesions in the brain and no abnormal meningeal enhancement. There is a small lacunar infarct in the right thalamus exhibiting CSF density measuring 6 x 4 mm. No t acute appearing. IMPRESSION: 1. There is significant atherosclerotic disease at both carotid bifurcations and proximal ICAs in the neck with both calcified and noncalcified plaque at these levels. There appears to be a critical st enosis at the right ICA origin, approximately 90 percent stenosis. Difficult to assess because of th e amount of calcification in the plaque at this level. Somewhat less amount of stenosis noted at sim ilar location on the opposite-left side, approximately 70-80 percent on the left side. 2. Patent vertebral arteries in the neck. Both vertebral arteries contribute to the formation of th e basilar artery at the skull base. 3. Patent intracranial arteries. 4. 6 millimeter lacunar infarct in the right thalamus, most probably not acute as it exhibits CSF den sity. No ring enhancing lesions in the brain. No abnormal meningeal enhancement. RADIATION DOSE DELIVERED: 1,851.76mGy.cm Total DLP DATA REPOSITORY: All CT scans at this facility are submitted to the National Radiology Data Registry (NRDR) Dose Index Registry (DIR) with the [employer] (ACR). RADIATION OPTIMIZATION: All CT scans at this facility use at least one of these dose optimization te chniques: automated exposure control; mA and/or kV adjustment per patient size (includes targeted exa ms where dose is matched to clinical indication); or iterative reconstruction.
== END 2022-12-17 13:35 ==
LOC: DI 13:17
PROVIDERS: PCP Nurse Practitioner Family; Visit Provider Nurse Practitioner Family
DX: H34.231 Retinal artery branch occlusion, right eye (principal); I65.23 Occlusion and stenosis of bilateral carotid arteries
CPT/HCPCS: 70496; 70498; 80053; 85025; J3490

== ENCOUNTER 2022-12-24 02:27 | Outpatient (CLI) | payer MEDICARE, BC, SELFPAY ==
--- NOTE | 2022-12-24 14:57 | DI.US_ITS ---
APPROVED REPORT EXAM: Comprehensive 2D, Doppler, and color-flow Echocardiogram Patient Location: Out-Patient Accountant Cost: Mariela Luna RDCS (AE) Indications: Reassess mitral valve regurgitation Other Information Study Quality: Fair. Technically limited study due to body habitus. Conclusion Normal left ventricular wall thickness and chamber size. Ejection fraction is 60%. Wall motion is n ormal Normal right ventricular size and systolic function Both atria are normal in size There are no structural or hemodynamically significant valvular abnormalities Estimated right ventricular systolic pressure is 17 mmHg Wall motion Left Ventricle The left ventricle is normal size. Technically limited parasternal imaging. The left ventricular syst olic function is normal. The left ventricular ejection fraction is within the normal range. There is normal left ventricular wall thickness. There is normal LV segmental wall motion. There is no ventric ular septal defect visualized. LVEF is 58%. Right Ventricle The right ventricle is normal size. Right ventricular systolic function is normal The RVSP is 17.2_ m mHg. Atria The left atrium size is normal. The right atrium size is normal. The interatrial septum is intact wit h no evidence for an atrial septal defect. Aortic Valve The aortic valve is normal in structure. Number of aortic valve leaflets could not be assessed. There is no aortic valvular stenosis. No aortic regurgitation is present. Mitral Valve The mitral valve is normal in structure. No evidence of mitral valve stenosis. Trace mitral regurgita tion. Tricuspid Valve The tricuspid valve is normal in structure. There is no tricuspid valve stenosis. Trace tricuspid reg urgitation. Pulmonic Valve Pulmonic valve is not well visualized. There is no pulmonic valvular stenosis. There is no pulmonic v alvular regurgitation. Great Vessels The aortic root is normal in size. Ascending aorta is not well visualized. Aortic arch is normal in c aliber. IVC is normal in size and collapses >50% with inspiration. Pericardium Trivial pericardial effusion. 2D Dimensions IVSD d PLAX 0.85 cm F: 0.6-1.0 LV Vol A2C d MOD 67.8 mL LVPW d PLAX 0.86 cm F: 0.6 - 1.0 LV Vol A4C d MOD 53.1 mL LVID d PLAX 3.69 cm F: 3.8 - 5.2 LA vol/ BSA A2C s A-L 22.9 mL/m2 LVDs 2.65 cm F: 2.2 - 3.5 LA vol/ BSA A4C s A-L 12.8 mL/m2 Ao Root d 2.10 cm F: 2.7 - 3.3 LA Vol/ BSA Biplane s A-L 17.7 mL/m2 LV EF Teichholz 53.8 % LA Area A4C s MOD 9.00 cm2 LVEF (Ace's) 55.69 % F: 54 - 74 LA Area A2C s MOD 12.50 cm2 LV Volume 50.78 mL F: 46 - 106 LV EF A4C MOD 59.3 % LV Volume Index 35.02 mL/m2 F: 29 - 61 LV EF A2C MOD 57.9 % LV Vol Biplane MOD 60.2 mL LV EF Biplane MOD 55.7 % FS 27.15 % SV 33.50 mL SV Index 23.05 mL/m2 LV Diastology MV E' lateral 0.095 (>0.1 m/s) E/A Ratio 0.7 LV E/e LAT 5.85 (<14) MV E Vmax 0.56 (0.4-1.3 m/s) MV E/E' lateral 5.86 MV A Vmax 0.80 (0.4-1.3 m/s) MV E/A Ratio 0.66 Aortic Valve LVOT Area 2.58 cm2 AoV Area Vmax 2.21 cm2 LVOT Vmax 0.88 m/s AoV Area/ BSA (Vmax) 1.52 cm2/m2 LVOT Mean Oumar. 0.63 m/s GRACIELA Mean Oumar. 2.08 cm2 LVOT Peak Grad 3.1 mmHg GRACIELA Mean Oumar. Index 1.43 cm2/m2 LVOT Mean Grad 1.7 mmHg LVOT VTI 0.156 m LVOT Diam s 1.80 cm AoV Vmax 1.03 m/s Velocity Ratio 0.85 AoV Mean Oumar. 0.78 m/s AoV Peak Grad 4.2 mmHg LVOT SV 40.16 mL AoV Mean Grad 2.6 mmHg AoV VTI 0.177 m AoV Area VTI 2.27 cm2 AoV Area/ BSA (VTI) 1.56 cm/m2 Mitral Valve MV DT 249 (160-240 msec) MV PHT 72 msec MV Area PHT 3.04 cm2 Pulmonary Valve PV Vmax 1.06 (0.5-1.5 m/s) RVOT Peak Gr. 4.97 mmHg PV Peak Grad 4.5 mmHg RVOT Mean Gr. 2.45 mmHg PV Mean Grad 2.3 mmHg RVOT VTI 0.182 m PV VTI 0.164 m RVOT Vmax 1.12 m/s Tricuspid Valve TR Peak Grad 14.1 mmHg TR Vmax 1.88 m/s RA Pressure 3.00 mmHg RVSP (TR) 17.2 mmHg
== END 2022-12-24 02:47 ==
LOC: DI 02:27
PROVIDERS: PCP Nurse Practitioner Family; Visit Provider Nurse Practitioner Family
DX: I34.0 Nonrheumatic mitral (valve) insufficiency (principal)
CPT/HCPCS: 93306

== ENCOUNTER 2023-01-08 01:14 | Outpatient (CLI) | payer MEDICARE, BC, SELFPAY ==
[2023-01-08 12:50] LABS: HCT 40.6 % (36.0-46.0); HGB 13.8 g/dL (11.2-15.7); MCH 32.2 pg (27.0-33.0); MCV 95 fL (80-95); MPV 8.7 fL (8.0-11.0); Platelet Count 494 10^3/uL (130-400); RBC 4.29 10^6/uL (3.93-5.22); RDW 13.9 % (11.7-14.6); RDW-SD 48.3 fL; WBC 7.97 10^3/uL (4.4-10.8)
[2023-01-08 13:09] LABS: ALT 29 U/L (14-59); AST 21 U/L (15-37); Albumin 3.9 g/dL (3.4-5.0); Alkaline Phosphatase 62 U/L (46-116); Anion Gap 9.7 mmol/L (3-11); BUN 14 mg/dL (7-18); Bilirubin, Total 0.6 mg/dL (0.2-1.0); CO2 27.3 mmol/L (21.0-32.0); CREATININE 0.7 mg/dL (0.55-1.02); Calcium 9.1 mg/dL (8.5-10.1); Chloride 103 mmol/L (98-107); Estimated GFR 93.56 (mL/min/1.73m2); Glucose 106 mg/dL (74-106); Potassium 3.6 mmol/L (3.5-5.1); Sodium 140 mmol/L (136-145); Total Protein 7.2 g/dL (6.4-8.2)
== END 2023-01-08 01:15 | disposition home or self-care (01) ==
LOC: LOS 01:14
PROVIDERS: PCP Nurse Practitioner Family; Visit Provider Surgery
DX: I65.23 Occlusion and stenosis of bilateral carotid arteries (principal); Z01.818 Encounter for other preprocedural examination; Z01.812 Encounter for preprocedural laboratory examination
CPT/HCPCS: 36415; 80053; 85027

== ENCOUNTER → 2023-08-16 15:55 | Outpatient (CLI) | payer MEDICARE, BC, SELFPAY ==
--- NOTE | 2023-08-16 13:54 | DI.CTLCSR_ITS ---
Exam(s) CT CHEST LUNG CANCER SCREEN EXAM: CT CHEST LUNG CANCER SCREEN CLINICAL HISTORY: Screening for lung cancer,CURRENT SMOKER, F17.210 TECHNIQUE: Imaging Protocol: Axial computed tomography images with coronal and sagittal reformatted images were created and reviewed COMPARISON: CT CT ABDOMEN PELVIS W from 10/14/[address] CHEST LUNG CANCER SCREEN from 05/27/2022 FINDINGS: Tracheobronchial tree: Patent where visualized. Pulmonary parenchyma: Centrilobular emphysematous changes are present. No focal infiltrates are seen . Lung Nodules: None. Mediastinum and Wendi: No dominant adenopathy or fluid collection. The esophagus is unremarkable. Thyroid gland: Unremarkable. Lymph nodes: Unremarkable. Pleura: No effusion or pneumothorax. Heart: The heart is not dilated. Coronary artery calcifications are present. No pericardial effusion . Aorta: Thoracic aorta non-dilated.There is atherosclerosis of the thoracic aorta. Upper abdomen: There is a stable left renal cyst. No follow-up is recommended. Soft Tissues: Unremarkable. Bones: Within normal limits. The patient has a left total shoulder replacement. IMPRESSION: No pulmonary nodules. Lung RADS Cat 1 - Negative: No nodules and definitely benign nodules Lung-RADS 1.0 CATEGORIES: Category 0 - Prior chest CT exam(s) being located for comparison. Category 1 - Annual screening in 12 months. No nodules or definitely benign nodules. Category 2 - Annual screening in 12 months. Benign appearance. Nodules with low likelihood of becomin g active cancer. Category 3 - 6-month follow-up. Probably benign. Short-term follow-up suggested. Nodules with low lik elihood of becoming active cancer. Category 4A - 3-month follow-up and CT/PET if >8 mm in size. Suspicious finding. Findings which requi re additional testing. Category 4B - Findings which require additional testing and tissue sampling. Suspicious finding. Category 4X - Category 3 or 4 nodules with additional features or imaging findings that increases the suspicion of malignancy. Modifier S- Potentially clinically significant finding. (Non lung cancer) RADIATION DOSE DELIVERED: 81.6mGy.cm Total DLP 81.6mGy.cmTotal DLP DATA REPOSITORY: All CT scans at this facility are submitted to the National Radiology Data Registry (NRDR) Dose Index Registry (DIR) with the [employer] (ACR). RADIATION OPTIMIZATION: All CT scans at this facility use at least one of these dose optimization te chniques: automated exposure control; mA and/or kV adjustment per patient size (includes targeted exa ms where dose is matched to clinical indication); or iterative reconstruction.
== END ==
PROVIDERS: PCP Nurse Practitioner Family; Visit Provider Nurse Practitioner Family
DX: F17.210 Nicotine dependence, cigarettes, uncomplicated (principal); Z12.2 Encounter for screening for malignant neoplasm of respiratory organs
CPT/HCPCS: 71271

== ENCOUNTER 2023-08-30 05:17 | Outpatient (CLI) | payer MEDICARE, BC, SELFPAY ==
[2023-08-30 13:11] LABS: ALT 29 U/L (14-59); AST 20 U/L (15-37); Albumin 3.9 g/dL (3.4-5.0); Alkaline Phosphatase 74 U/L (46-116); Anion Gap 9.5 mmol/L (3-11); BUN 11 mg/dL (7-18); Bilirubin, Total 0.4 mg/dL (0.2-1.0); CO2 28.5 mmol/L (21.0-32.0); CREATININE 0.7 mg/dL (0.55-1.02); Calcium 9.5 mg/dL (8.5-10.1); Calculated LDL 112 mg/dL (<100); Chloride 104 mmol/L (98-107); Cholesterol 209 mg/dL (<200); Estimated GFR 92.98 (mL/min/1.73m2); Glucose 99 mg/dL (74-106); HDL Cholesterol 90 mg/dL (40-60); Potassium 3.8 mmol/L (3.5-5.1); Sodium 142 mmol/L (136-145); Total Protein 7.6 g/dL (6.4-8.2); Triglyceride 39 mg/dL (<150)
[2023-08-30 13:21] LABS: Hemoglobin A1C 5.4 % (<5.7); Vitamin D 25 Total 30.4 ng/mL (30-100)
[2023-08-30 18:58] LABS: Hepatitis C Ab w Rflx HCV PCR Negative (Negative)
== END 2023-08-30 05:18 | disposition home or self-care (01) ==
LOC: LOS 05:17
PROVIDERS: PCP Nurse Practitioner Family; Visit Provider Nurse Practitioner Family
DX: E78.5 Hyperlipidemia, unspecified (principal); R73.01 Impaired fasting glucose; M81.0 Age-related osteoporosis without current pathological fracture; Z11.59 Encounter for screening for other viral diseases
CPT/HCPCS: 36415; 80053; 80061; 82306; 86803; 83036

== ENCOUNTER 2024-06-01 01:13 | Outpatient (CLI) | payer MEDICARE, BC, SELFPAY ==
--- NOTE | 2024-06-01 12:52 | DI.MAMMO_ITS ---
Exam(s) MAMMO SCREENING EXAM: MAMMO SCREENING CLINICAL HISTORY: screening,z12.39 TECHNIQUE: Mammograms were interpreted according to the usual protocol including computer analysis w [employer] CAD system, tomosynthesis and C-view imaging. COMPARISON: 2013 through 2021 FINDINGS: The breasts are composed of heterogeneously dense fibroglandular densities, Breast Density category C . No suspicious masses or suspicious microcalcifications are seen. No skin thickening or abnormal axillary lymph nodes are seen. There has been no significant change from prior exams. IMPRESSION: BI-RADS Category 1, Negative mammogram. Yearly screening mammography is recommended. Breast Density Category C, heterogeneously Dense. The mammogram demonstrates the patient's breast tissue is dense. Dense breast tissue is very common a nd is not abnormal but dense breast tissue can make it harder to find cancer on a mammogram. Also, de nse breast tissue may increase breast cancer risk. This information about the result of the mammogram report was provided to the patient to raise their awareness. Use this report when you speak with the patient about their risks for breast cancer, which includes their family history. At that time, you may recommend additional screening tests (Ultrasound or MRI) as they might be useful based on their r isk. A negative radiographic report should not delay biopsy if a dominant or clinically suspicious mass is present. Up to ten percent of cancers are not identified on mammography. A negative report may reinforce clinical impression. Adenosis and dense breasts may obscure an underlying neoplasm. False positive reports average 6 to 10%.
== END 2024-06-01 01:33 ==
LOC: DI 01:14
PROVIDERS: PCP Nurse Practitioner Family; Visit Provider Nurse Practitioner Family
DX: Z12.31 Encounter for screening mammogram for malignant neoplasm of breast (principal); R92.323 Mammographic fibroglandular density, bilateral breasts; R92.333 Mammographic heterogeneous density, bilateral breasts
CPT/HCPCS: 77063; 77067

== ENCOUNTER 2024-09-29 00:07 | Outpatient (CLI) | payer MEDICARE, BC, SELFPAY ==
--- NOTE | 2024-09-29 07:30 | DI.CTLCSR_ITS ---
Exam(s) CT CHEST LUNG CANCER SCREEN EXAM: CT CHEST LUNG CANCER SCREEN CLINICAL HISTORY: Screening for lung cancer,[employer], F17.210 TECHNIQUE: Imaging Protocol: Axial computed tomography images with coronal and sagittal reformatted images were created and reviewed. Lung Computer Aided Detection (CAD) was utilized. COMPARISON: CT CT ABDOMEN PELVIS W from 10/14/[address] CHEST LUNG CANCER SCREEN from 08/16/2023 FINDINGS: Tracheobronchial tree: Patent where visualized. No bronchiectasis. Pulmonary parenchyma: Moderate centrilobular emphysematous changes. No focal consolidating infiltrat es are present. Lung Nodules: There is a new 3 mm nodule in the right lower lobe (series 2, image 66). Mediastinum and Wendi: No dominant adenopathy or fluid collection. The esophagus is unremarkable. Thyroid gland: Unremarkable. Lymph nodes: Unremarkable. Pleura: No effusion or pneumothorax. Heart: The heart is not dilated. Single-vessel coronary artery calcification is present. No pericard ial effusion. Aorta: Thoracic aorta non-dilated.Atherosclerotic calcification of the thoracic aorta is noted. Upper abdomen: There is again seen a left renal cyst. No follow-up is recommended. Soft Tissues: Unremarkable. Bones: Within normal limits. The patient has a left total shoulder arthroplasty. IMPRESSION: 3 mm right lower lobe pulmonary nodule. Lung RADS Cat 2 - Benign Appearance / Behavior: Nodules with a very low likelihood of becoming a clin ically active cancer due to size or lack of growth Lung-RADS 1.0 CATEGORIES: Category 0 - Prior chest CT exam(s) being located for comparison. Category 1 - Annual screening in 12 months. No nodules or definitely benign nodules. Category 2 - Annual screening in 12 months. Benign appearance. Nodules with low likelihood of becomin g active cancer. Category 3 - 6-month follow-up. Probably benign. Short-term follow-up suggested. Nodules with low lik elihood of becoming active cancer. Category 4A - 3-month follow-up and CT/PET if >8 mm in size. Suspicious finding. Findings which requi re additional testing. Category 4B - Findings which require additional testing and tissue sampling. Suspicious finding. Category 4X - Category 3 or 4 nodules with additional features or imaging findings that increases the suspicion of malignancy. Modifier S- Potentially clinically significant finding. (Non lung cancer) RADIATION DOSE DELIVERED: 22.32mGy.cm Total DLP 22.32mGy.cmTotal DLP DATA REPOSITORY: All CT scans at this facility are submitted to the National Radiology Data Registry (NRDR) Dose Index Registry (DIR) with the [employer] ([employer]). RADIATION OPTIMIZATION: All CT scans at this facility use at least one of these dose optimization te chniques: automated exposure control; mA and/or kV adjustment per patient size (includes targeted exa ms where dose is matched to clinical indication); or iterative reconstruction.
== END 2024-09-29 00:27 ==
LOC: DI 00:07
PROVIDERS: PCP Nurse Practitioner Family; Visit Provider Family Medicine
DX: F17.210 Nicotine dependence, cigarettes, uncomplicated (principal); Z12.2 Encounter for screening for malignant neoplasm of respiratory organs; R91.1 Solitary pulmonary nodule
CPT/HCPCS: 71271

== ENCOUNTER 2024-11-02 00:43 | Outpatient (CLI) | payer MEDICARE, BC, SELFPAY ==
--- NOTE | 2024-11-02 07:30 | DI.DEXA_ITS ---
Exam(s) XR DEXA BONE DENSITY W/WO ROBBIN EXAM: XR DEXA BONE DENSITY W/WO ROBBIN CLINICAL HISTORY: screening,menopausal disorder,n95.9 TECHNIQUE: Routine DEXA evaluation of the lumbar spine, hip, or forearm. COMPARISON: CR XR DEXA BONE DENSITY W/WO ROBBIN from 08/13/2022 FINDINGS: Performed on a [employer] unit. Lateral image: No compression fracture evident. Lumbar Spine total T-score: -0.3. Prior reading in July 2022 was -0.2 Hip total T-score:-2.2. Prior reading in July 2022 was -1.5 Independent reading at the level of the femoral neck yields T-score of -2.5. Prior reading at the f emoral neck level in July 2022 was also -2.5 Forearm total T-score: -1.9. Prior reading in July 2022 was -2.3 IMPRESSION: Bone mineral density measures in the osteoporosis range at the level the femoral neck, similar to pre vious fracture risk is moderate-high. Note: Any spine fracture indicates 5x risk for subsequent spine fracture and 2x risk for subsequent h ip fracture. World Health Organization criteria for BMD interpretation classify patients: Normal...... T- Score at or above -1.0 Osteopenic... T- Score between -1.0 and -2.5 Osteoporosis... T-Score at or below -2.5
== END 2024-11-02 01:03 ==
LOC: DI 00:43
PROVIDERS: PCP Nurse Practitioner Family; Visit Provider Family Medicine
DX: N95.9 Unspecified menopausal and perimenopausal disorder (principal); M85.89 Other specified disorders of bone density and structure, multiple sites
CPT/HCPCS: 77080